=== PATIENT | female | born 1940 | race Caucasian/White ===

== ENCOUNTER 2024-11-09 08:43 | Outpatient (CLI) | payer MEDICARE, OTHER ==
--- NOTE | 2024-11-09 12:23 | VASCULAR REPORT ---
Carotid Duplex Clinical History: Dizziness, hypertension Comparison: None Technique: Duplex Doppler evaluation of the extracranial carotid and vertebral arteries including color Doppler and spectral/pulsed waveform analysis was performed. Findings: RIGHT SIDE: The peak systolic velocities are 87 cm/s in the CCA, 87 cm/s in the ICA. The ICA/CCA ratio is 1.43. The external carotid artery is patent with peak systolic velocity of 94 cm/s proximally. The subclavian artery is patent with peak systolic velocity of 95 cm/s. There is appropriate antegrade flow in the right vertebral artery. LEFT SIDE: The peak systolic velocities are 88 cm/s in the CCA, 75 cm/s in the ICA. The ICA/CCA ratio is 1.18. The external carotid artery is patent with peak systolic velocity of 91 cm/s proximally. The subclavian artery is patent with peak systolic velocity of 103 cm/s. There is appropriate antegrade flow in the left vertebral artery. IMPRESSION: Less than 50% stenosis of bilateral carotid artery systems. Antegrade flow in bilateral vertebral arteries. Multiphasic flow in bilateral subclavian arteries. Reference: Radiology 2003; 229:[id number] Normal ICA PSV is <125 cm/sec and no plaque or intimal thickening is visible sonographically addition al criteria include ICA/CCA PSV ratio <2.0 and ICA EDV <40 cm/sec <50% ICA stenosis ICA PSV is <125 cm/sec and plaque or intimal thickening is visible sonographically additional criteria include ICA/CCA PSV ratio <2.0 and ICA EDV <40 cm/sec 50-69% ICA stenosis ICA PSV is 125-230 cm/sec and plaque is visible sonographically additional criter ia include ICA/CCA PSV ratio of 2.0-4.0 and ICA EDV of 40-100 cm/sec 70% ICA stenosis but less than near occlusion ICA PSV is >230 cm/sec and visible plaque and luminal narrowing are seen at de la cruz-scale and color Doppler ultrasound (the higher the Doppler parameters lie above the threshold of 230 cm/sec, the greater the likelihood of severe disease) additional criteria include ICA/CCA PSV ratio >4 and ICA EDV >100 cm/sec
== END 2024-11-09 23:59 | disposition home or self-care (01) ==
LOC: VAS 08:43
PROVIDERS: ATTEND Internal Medicine Cardiovascular Disease
DX: I65.23 Occlusion and stenosis of bilateral carotid arteries (principal); I35.0 Nonrheumatic aortic (valve) stenosis; R42 Dizziness and giddiness
CPT/HCPCS: 93880